=== PATIENT | male | born 1955 | race Caucasian/White ===

== ENCOUNTER 2016-11-13 09:26 | Day surgery (SDC) | payer BC ==
[2016-11-12 13:43] VITALS: BMI 29.0
[2016-11-13] MEDS ORDERED: MIDAZOLAM HCL 2 MG/2 ML SINGLE DOSE VIAL ONE (11:41)
[2016-11-13] MEDS ORDERED: PROPOFOL 20 ML ONE ×2 (11:41)
[2016-11-13] MEDS ORDERED: SUCCINYLCHOLINE CHLORIDE 200 MG/10 ML VIAL ONE (11:41)
[2016-11-13] MEDS ORDERED: oxyCODONE HCL 5 MG TABLET PO PRN (12:29)
[2016-11-13] MEDS ORDERED: ONDANSETRON 4 MG/2 ML VIAL IVPUSH PRN (12:29)
[2016-11-13] MEDS ORDERED: LACTATED RINGERS SOLUTION 1,000 ML IV SCH (12:30)
[2016-11-13] MEDS ORDERED: GLYCOPYRROLATE 0.2 MG/1 ML VIAL ONE ×2 (13:05)
[2016-11-13] MEDS ORDERED: NEOSTIGMINE METHYLSULFATE 0.5 MG/ML - 10 ML MDV ONE (13:06)
--- NOTE | 2016-11-13 13:23 | PROC ---
Procedure Note Procedure: BRONCHOSCOPY NOTE After discussing the risks and benefits of the procedure including bleeding and pneumothorax, informed consent was obtained. Pt was placed under general anesthesia and intubated with a size 8.0 ETT. [place] video bronchoscope was passed via the ETT and the airways were examined down to the subsegmental level. The yany was slightly widened. There was thick secretions scattered throughout the airways, predominantly from the RLL. The medial segment of the RML and the lateral segment of the RLL were brushed, lavaged and transbronchial biopsies were taken. No leonor bleeding noted post biopsy. Bronchoscope then withdrawn and procedure terminated. Pre-op Dx: atypical pneumonia Post-op Dx: same Plan: - check CXR in PACU - f/u cultures, cytology and pathology - f/u as outpt Cesar Todd MD
[2016-11-13 14:48] VITALS: TEMP 98.7
[2016-11-13 16:19] VITALS: BP 139/74; PULSE 96
--- NOTE | 2016-11-14 14:04 | PATH ---
Surgical Pathology Report Patient Name: MIRIAM LEI [facility]. Rec. #: [id number] /Age/Gender: 1955 (Age: 61) / M Account: [id number] Location: [facility] Taken: 11/13/2016 Received: 11/13/2016 Reported: 11/14/2016 Physicians: Cesar Todd M.D. Specimen(s) Received RIGHT LOWER LOBE LUNG BIOPSY Clinical History Pneumonia Final Diagnosis LUNG, RIGHT LOWER LOBE, BRONCHOSCOPIC BIOPSY: BENIGN BRONCHOPULMONARY TISSUE WITH ACTIVE INFLAMMATION AND FOCAL HISTOCYTE COLLECTION (SEE COMMENT). Comment: Acute inflammation and focal loose histocyte collections are present. No definitive granulomas are identified. No malignancy is identified. Special stains for fungal and acid-fast organisms are pending; results will be reported in an addendum. Electronically Signed Fredi Dumont M.D. Addendum Reported: 11/14/2016 Addendum Diagnosis No acid-fast bacilli are identified with AFB stain. No fungal organisms are identified with GMS stain. Comment: Correlations with microbiologic studies are suggested. Fredi Dumont M.D. Gross Description Received in formalin, labeled "right lower lobe biopsy" is a 0.6 x 0.4 x 0.2 cm aggregate of dykes soft tissue fragments. The formalin is filtered and the specimen is entirely submitted in one cassette. 11/13/201611/13/2016
--- NOTE | 2016-11-14 17:32 | PATH ---
Cytology Non-Gynecological Report Patient Name: MIRIAM LEI Med. Rec. #: [id number] /Age/Gender: 1955 (Age: 61) / M Account: [id number] Location: [facility] Taken: 11/13/2016 Received: 11/13/2016 Reported: 11/14/2016 Physicians: Cesar Todd M.D. Specimen(s) Received A: BRONCHIAL BRUSHINGS B: BRONCHIAL WASHINGS Clinical History Pneumonia Final Diagnosis A. LUNG, RIGHT LOWER LOBE, BRONCHIAL BRUSHING: SATISFACTORY FOR EVALUATION. NO MALIGNANT CELLS IDENTIFIED. REACTIVE BRONCHIAL CELLS, MACROPHAGES AND MARKED ACUTE INFLAMMATION. B. LUNG, RIGHT LOWER LOBE, BRONCHIAL WASHINGS: SATISFACTORY FOR EVALUATION. NO MALIGNANT CELLS IDENTIFIED. REACTIVE BRONCHIAL CELLS, MACROPHAGES AND MARKED ACUTE INFLAMMATION. Comment: Refer to [id number] for the biopsy and special stains for microorganisms results. Electronically Signed Fredi Dumnot M.D. Gross Description A. Received is 50 cc of clear fluid in 50% alcohol. One cytofunnel slide and one cell block are made. B. Recieved is 50 cc of bloody fluid in 50% alcohol. One cytofunnel slide and one cell block are made.
== END 2016-11-13 15:50 | disposition home or self-care (01) ==
LOC: JASU-SURG 09:26
PROVIDERS: ATTEND Internal Medicine
PROC: 0BBF8ZX Excision of Right Lower Lung Lobe, Via Natural or Artificial Opening Endoscopic, Diagnostic (ICD-10-PCS; 2016-11-13)
PROC: 0BB68ZX Excision of Right Lower Lobe Bronchus, Via Natural or Artificial Opening Endoscopic, Diagnostic (ICD-10-PCS; 2016-11-13)
PROC: 0BBD8ZX Excision of Right Middle Lung Lobe, Via Natural or Artificial Opening Endoscopic, Diagnostic (ICD-10-PCS; 2016-11-13)
PROC: 0BBD8ZX Excision of Right Middle Lung Lobe, Via Natural or Artificial Opening Endoscopic, Diagnostic (ICD-10-PCS; principal; 2016-11-13 11:00)
DX: J18.9 Pneumonia, unspecified organism (principal)
CPT/HCPCS: 71010-TC; 76000-TC; 87070; 87102; 87116; 87205; 87206; 87210; 88108; 88305-TC; 88312-TC; 94760

== ENCOUNTER 2018-08-26 07:31 | Day surgery (SDC) | payer BC ==
[2018-08-24 12:11] VITALS: BMI 27.3
[~2018-08-26 07:31] MED LIST: ACETAMINOPHEN 325 MG TABLET (FP) PO PRN
[2018-08-26] MEDS ORDERED: OFLOXACIN 0.3% OPHTHALMIC SOLUTION 5 ML BOTTLE ONE (07:40)
[2018-08-26] MEDS ORDERED: TROPICAMIDE 1% OPHTH SOLN 15 ML BOTTLE ONE (07:40)
[2018-08-26] MEDS ORDERED: PHENYLEPHRINE 2.5% OPHTH SOLN 15 ML BOTTLE ONE (07:40)
[2018-08-26] MEDS ORDERED: CYCLOPENTOLATE HCL 1% OPHTH SOLN 2 ML BOTTLE ONE (07:40)
[2018-08-26] MEDS ORDERED: KETOROLAC TROMETHAMINE 0.5% EYE DROP 1 DROP DROPS ONE (07:54)
[2018-08-26] MEDS ORDERED: EPINEPHrine/PF 1 MG/1 ML (1:1,000) AMPULE ONE (07:55)
[2018-08-26] MEDS ORDERED: TETRACAINE 0.5% OPHTH SOLN 2 ML BOTTLE ONE (07:55)
[2018-08-26] MEDS ORDERED: LIDOCAINE HCL/PF 1% SDV 5ML VIAL ONE (07:55)
[2018-08-26] MEDS ORDERED: BSS (NA/CA/MG/K) BALANCED SALT SOLUTION OPHTH SOLN 15 ML BOTTLE ONE (07:56)
[2018-08-26] MEDS: PHENYLEPHRINE 2.5% OPHTH SOLN 15 ML BOTTLE OP SCH ×3 (08:00→08:10)
[2018-08-26] MEDS: KETOROLAC TROMETHAMINE 0.5% EYE DROP 1 DROP DROPS OP SCH ×3 (08:00→08:10)
[2018-08-26] MEDS: CYCLOPENTOLATE HCL 1% OPHTH SOLN 2 ML BOTTLE OP SCH ×3 (08:00→08:10)
[2018-08-26] MEDS: TROPICAMIDE 1% OPHTH SOLN 15 ML BOTTLE OP SCH ×3 (08:00→08:10)
[2018-08-26] MEDS: OFLOXACIN 0.3% OPHTHALMIC SOLUTION 5 ML BOTTLE OP SCH ×3 (08:00→08:10)
[2018-08-26 08:07] VITALS: TEMP 97.4
[2018-08-26] MEDS ORDERED: MIDAZOLAM HCL 2 MG/2 ML SINGLE DOSE VIAL ONE (08:55)
[2018-08-26] MEDS ORDERED: TETRACAINE 0.5% HCL 0.6ML DROPPER.BOTTLE TP ONE (09:15)
[2018-08-26] MEDS ORDERED: LIDOCAINE HCL 1% PRESERVATIVE FREE - 30ML VIAL IO ONE (09:18)
[2018-08-26] MEDS ORDERED: CHONDROITIN SU A/HYALUR SOD 1 KIT IO ONE (09:22)
[2018-08-26] MEDS ORDERED: EPINEPHrine/PF 1 MG/1 ML (1:1,000) AMPULE IO ONE ×2 (09:23→09:32)
--- NOTE | 2018-08-26 10:33 | SPEC ---
DATE OF OPERATION: 08/26/2018 OPERATION: Phacoemulsification with posterior chamber intraocular lens implantation, right eye. Lens used [id number], 21.0 Diopter power, Serial No. [id number]. PREOPERATIVE DIAGNOSIS: Cataract, right eye. POSTOPERATIVE DIAGNOSIS: Cataract, right eye. SURGEON: Dariana Lares M.D. ANESTHESIA: Topical MAC. COMPLICATIONS: None. PROCEDURE: The patient was brought to the operating room and correctly identified along with the operative site and the correct intraocular lens louie. The patient was then prepped and draped in the usual sterile fashion including 5% Betadine solution in the conjunctival sac and an eyelid drape. An eyelid speculum was then placed in the eye. A paracentesis port was created and approximately 0.5 mL of preservative free Lidocaine was then injected into the eye. Viscoelastic was then injected to inflate the anterior chamber. A temporal clear corneal wound was created. A continuous circular capsulorrhexis was performed. The nucleus was then hydrodissected with BSS and removed with phacoemulsification. The remaining cortical material was irrigated and aspirated. Viscoelastic was injected to inflate the capsular bag and the intraocular lens was then implanted into the capsular bag. The remaining Viscoelastic was irrigated and aspirated from the eye. The IOL was noted to be well centered and completely covered by the anterior capsulorrhexis. Topical vancomycin was placed and the eye patched and shielded. All wounds were tested and found to be watertight. No suture was placed. The eye was then shielded. The patient was then discharged from the operating room in stable condition. DARIANA LARES M.D. [id number]
[2018-08-26 10:50] VITALS: BP 129/74; PULSE 68
[2018-08-26] MEDS ORDERED: CHONDROITIN SU A/HYALUR SOD 1 KIT ONE (12:53)
== END 2018-08-26 10:54 | disposition home or self-care (01) ==
LOC: JASU-SURG 07:31
PROVIDERS: ATTEND Ophthalmology
PROC: 08RJ3JZ Replacement of Right Lens with Synthetic Substitute, Percutaneous Approach (ICD-10-PCS; principal; 2018-08-26 09:00)
DX: H26.9 Unspecified cataract (principal)

== ENCOUNTER 2018-09-09 08:15 | Day surgery (SDC) | payer BC ==
[2018-09-08 09:31] VITALS: BMI 27.3
[~2018-09-09 08:15] MED LIST changes: +CHONDROITIN SU A/HYALUR SOD 1 KIT IO ONE; +CYCLOPENTOLATE HCL 1% OPHTH SOLN 2 ML BOTTLE OP SCH; +EPINEPHrine/PF 1 MG/1 ML (1:1,000) AMPULE IO ONE; +KETOROLAC TROMETHAMINE 0.5% EYE DROP 1 DROP DROPS OP SCH; +LIDOCAINE HCL 1% PRESERVATIVE FREE - 30ML VIAL IO ONE; +OFLOXACIN 0.3% OPHTHALMIC SOLUTION 5 ML BOTTLE OP SCH; +PHENYLEPHRINE 2.5% OPHTH SOLN 15 ML BOTTLE OP SCH; +TROPICAMIDE 1% OPHTH SOLN 15 ML BOTTLE OP SCH; +VANCOMYCIN 500 MG VIAL (RESTRICTED TO ID ONLY) IVPB ONE
[2018-09-09] MEDS ORDERED: CHONDROITIN SU A/HYALUR SOD 1 KIT ONE (08:26)
[2018-09-09] MEDS ORDERED: PHENYLEPHRINE 2.5% OPHTH SOLN 15 ML BOTTLE ONE (08:52)
[2018-09-09] MEDS ORDERED: TROPICAMIDE 1% OPHTH SOLN 15 ML BOTTLE ONE (08:52)
[2018-09-09] MEDS ORDERED: OFLOXACIN 0.3% OPHTHALMIC SOLUTION 5 ML BOTTLE ONE (08:52)
[2018-09-09] MEDS ORDERED: CYCLOPENTOLATE HCL 1% OPHTH SOLN 2 ML BOTTLE ONE (08:52)
[2018-09-09] MEDS ORDERED: KETOROLAC TROMETHAMINE 0.5% EYE DROP 1 DROP DROPS ONE (08:53)
[2018-09-09 09:26] VITALS: TEMP 97.3
[2018-09-09] MEDS ORDERED: OFLOXACIN 0.3% OPHTHALMIC SOLUTION 5 ML BOTTLE OS ONE ×3 (09:35→09:50)
[2018-09-09] MEDS ORDERED: PHENYLEPHRINE 2.5% OPHTH SOLN 15 ML BOTTLE OS ONE ×3 (09:35→09:50)
[2018-09-09] MEDS ORDERED: TROPICAMIDE 1% OPHTH SOLN 15 ML BOTTLE OS ONE ×3 (09:35→09:50)
[2018-09-09] MEDS ORDERED: CYCLOPENTOLATE HCL 1% OPHTH SOLN 2 ML BOTTLE OS ONE ×3 (09:35→09:50)
[2018-09-09] MEDS ORDERED: KETOROLAC TROMETHAMINE 0.5% EYE DROP 1 DROP DROPS OS ONE ×3 (09:35→09:50)
[2018-09-09] MEDS ORDERED: EPINEPHrine/PF 1 MG/1 ML (1:1,000) AMPULE ONE ×2 (10:46→11:30)
[2018-09-09] MEDS ORDERED: MIDAZOLAM HCL 2 MG/2 ML SINGLE DOSE VIAL ONE (10:58)
[2018-09-09] MEDS ORDERED: TETRACAINE 0.5% OPHTH SOLN 2 ML BOTTLE OS ONE (10:58)
[2018-09-09] MEDS ORDERED: POVIDONE-IODINE 5% OPHTHALMIC PREP 30 ML SOLUTION OS ONE (11:00)
[2018-09-09] MEDS ORDERED: BSS (NA/CA/MG/K) BALANCED SALT SOLUTION OPHTH SOLN 15 ML BOTTLE IO ONE (11:06)
[2018-09-09] MEDS ORDERED: CHONDROITIN SU A/HYALUR SOD 1 KIT IO ONE (11:10)
[2018-09-09] MEDS ORDERED: LIDOCAINE HCL 1% PRESERVATIVE FREE - 30ML VIAL IO ONE (11:10)
[2018-09-09] MEDS ORDERED: EPINEPHrine/PF 1 MG/1 ML (1:1,000) AMPULE IO ONE (11:13)
[2018-09-09] MEDS ORDERED: VANCOMYCIN 500 MG VIAL (RESTRICTED TO ID ONLY) IVPB ONE (11:25)
[2018-09-09] MEDS ORDERED: LIDOCAINE HCL/PF 1% SDV 5ML VIAL ONE (11:30)
[2018-09-09] MEDS ORDERED: BSS (NA/CA/MG/K) BALANCED SALT SOLUTION OPHTH SOLN 15 ML BOTTLE ONE (11:31)
[2018-09-09] MEDS ORDERED: POVIDONE-IODINE 5% OPHTHALMIC PREP 30 ML SOLUTION ONE (11:31)
[2018-09-09] MEDS ORDERED: ACETAMINOPHEN 325 MG TABLET (FP) ONE (11:40)
--- NOTE | 2018-09-09 12:20 | SPEC ---
DATE OF OPERATION: DATE OF DICTATION: 09/09/2018 OPERATION: Phacoemulsification with posterior chamber intraocular lens implantation, left eye. Lens used SN60WF, 21.0 Diopter power, Serial No. [id number]. PREOPERATIVE DIAGNOSIS: Cataract, left eye. POSTOPERATIVE DIAGNOSIS: Cataract, left eye. SURGEON: Dariana Lares M.D. ANESTHESIA: Topical MAC. COMPLICATIONS: None. PROCEDURE: The patient was brought to the operating room and correctly identified along with the operative site and the correct intraocular lens louie. The patient was then prepped and draped in the usual sterile fashion including 5% Betadine solution in the conjunctival sac and an eyelid drape. An eyelid speculum was then placed in the eye. A paracentesis port was created and approximately 0.5 mL of preservative free Lidocaine was then injected into the eye. Viscoelastic was then injected to inflate the anterior chamber. A temporal clear corneal wound was created. A continuous circular capsulorrhexis was performed. The nucleus was then hydrodissected with BSS and removed with phacoemulsification. The remaining cortical material was irrigated and aspirated. Viscoelastic was injected to inflate the capsular bag and the intraocular lens was then implanted into the capsular bag. The remaining Viscoelastic was irrigated and aspirated from the eye. The IOL was noted to be well centered and completely covered by the anterior capsulorrhexis. Topical vancomycin was placed and the eye patched and shielded. All wounds were tested and found to be watertight. No suture was placed. The eye was then shielded. The patient was then discharged from the operating room in stable condition. DARIANA LARES M.D. [id number]
[2018-09-09 12:22] VITALS: BP 138/66; PULSE 64
== END 2018-09-09 13:00 | disposition home or self-care (01) ==
LOC: JASU-SURG 08:15
PROVIDERS: ATTEND Ophthalmology
PROC: 08RK3JZ Replacement of Left Lens with Synthetic Substitute, Percutaneous Approach (ICD-10-PCS; principal; 2018-09-09 11:00)
DX: H26.9 Unspecified cataract (principal)

== ENCOUNTER 2022-05-28 18:51 | Emergency (ER) | payer BC ==
[2022-05-28 19:00] VITALS: BP 160/80; PULSE 86; RESP 18; TEMP 98.2; BMI 27.9
[2022-05-28] MEDS ORDERED: ACETAMINOPHEN 1000 MG/100 ML BAG IVPB ONE (20:44)
[2022-05-28] MEDS ORDERED: SODIUM CHLORIDE 0.9% 500 ML INFUS.BAG IV ONE (20:44)
[2022-05-28] MEDS ORDERED: ONDANSETRON 4 MG/2 ML VIAL IVPUSH ONE (20:44)
[2022-05-28 20:56] LABS: URINE APPEARANCE CLEAR; URINE BILIRUBIN NEGATIVE (NEGATIVE); URINE COLOR YELLOW; URINE GLUCOSE (UA) NEGATIVE (NEGATIVE); URINE KETONE NEGATIVE (NEGATIVE); URINE LEUK ESTERASE NEGATIVE (NEGATIVE); URINE NITRITE NEGATIVE (NEGATIVE); URINE PROTEIN NEGATIVE (NEGATIVE)
[2022-05-28] MEDS ORDERED: ACETAMINOPHEN INJECTION 100 ML IVPB ONE (20:56)
[2022-05-28] MEDS ORDERED: ONDANSETRON 4 MG/2 ML VIAL ONE (20:57)
[2022-05-28 21:10] LABS: BASO % 0.3 % (0-2.0); EOS % 0.4 % (0-4.5); HEMATOCRIT 42.2 % (35.4-49); HEMOGLOBIN 14.6 GM/dL (11.7-16.9); LYMPH % 12.7 % (8-40); MCHC 34.7 g/dl (32.0-35.9); MEAN CELL VOLUME 86.4 fl (80-96); MONO % 5.9 % (3.8-10.2); NEUT % 80.7 % (42.8-82.8); PLATELET COUNT 218 10^3/uL (134-434); RBC 4.88 M/mm3 (4.00-5.60); RDW 13.6 % (11.9-15.9); WHITE BLOOD COUNT 10.4 K/mm3 (4.0-10.0)
[2022-05-28 21:17] LABS: INR 1.15 (0.83-1.09); PROTHROMBIN TIME (PATIENT) 13.3 SEC (9.7-13.0)
[2022-05-28 21:20] LABS: ACTIVATED PTT 35.7 SECONDS (25.2-36.5)
[2022-05-28 21:29] LABS: ALBUMIN 4.3 g/dl (3.4-5.0); BLOOD UREA NITROGEN 13.8 mg/dL (7-18); CALCIUM 9.9 mg/dL (8.5-10.1); MAGNESIUM 2.1 mg/dL (1.8-2.4)
[2022-05-28 21:32] LABS: CREATININE 0.9 mg/dL (0.55-1.3)
[2022-05-28 21:34] LABS: BILIRUBIN,TOTAL 0.6 mg/dL (0.2-1)
== END 2022-05-28 23:35 | disposition home or self-care (01) ==
LOC: JER 18:51
PROC: 3E033NZ Introduction of Analgesics, Hypnotics, Sedatives into Peripheral Vein, Percutaneous Approach (ICD-10-PCS; principal; 2022-05-28)
PROC: 3E033GC Introduction of Other Therapeutic Substance into Peripheral Vein, Percutaneous Approach (ICD-10-PCS; 2022-05-28)
DX: R10.32 Left lower quadrant pain (principal); R30.0 Dysuria; K57.92 Diverticulitis of intestine, part unspecified, without perforation or abscess without bleeding
CPT/HCPCS: 36415; 74176-TC; 80053; 81003; 83605; 83735; 85025; 85610; 85730; 87086; 93005; 93010; 99285-25

== ENCOUNTER 2023-08-02 14:20 | Emergency (ER) | payer BC ==
[2023-08-02 14:34] VITALS: BMI 28.1
[2023-08-02] MEDS ORDERED: morphine CARPU-JECT 2 MG/1 ML DISP.SYRIN IVPUSH ONE ×3 (16:44→18:48)
[2023-08-02 22:10] VITALS: BP 147/76; TEMP 98
[2023-08-02 22:14] VITALS: PULSE 90
[2023-08-02 22:15] VITALS: RESP 18
== END 2023-08-02 22:16 | disposition short-term general hospital (02) ==
LOC: JER 14:20 → JERFT 14:20 → JER 22:16
PROC: 2W3RX1Z Immobilization of Left Lower Leg using Splint (ICD-10-PCS; principal; 2023-08-02)
PROC: 3E033GC Introduction of Other Therapeutic Substance into Peripheral Vein, Percutaneous Approach (ICD-10-PCS; 2023-08-02)
PROC: 3E033GC Introduction of Other Therapeutic Substance into Peripheral Vein, Percutaneous Approach (ICD-10-PCS; 2023-08-02)
DX: M79.672 Pain in left foot (principal); R22.42 Localized swelling, mass and lump, left lower limb; W01.0XXA Fall on same level from slipping, tripping and stumbling without subsequent striking against object, initial encounter; Z20.822 Contact with and (suspected) exposure to COVID-19
CPT/HCPCS: 73610-TC-LT-FY; 73630-TC-LT; 87635; 99285-25